=== PATIENT | male | born 1980 | race Two or more races ===

== ENCOUNTER 2017-06-16 17:21 | Emergency (ER) | payer MEDICAID ==
[~2017-06-16] VITALS: Ht 177.8 cm; Wt 102.1 kg
--- NOTE | 2017-06-16 18:09 | NUR ---
DR BARTLETT AT BEDSIDE FOR ABCESS CARE.
--- NOTE | 2017-06-16 18:23 | NUR ---
MSE COMPLETED, DRESSING TO RT FA. PT D/C'D HOME, ACI/RX X2 GIVEN. PT GOT DRESSED AND AMBULATED WITH HIS UNCLE WHOM IS TO DRIVE.
[2017-06-16 18:24] VITALS: BP 142/84
== END 2017-06-16 18:25 | disposition home or self-care (01) ==
LOC: ER 17:22
DX: L02.414 Cutaneous abscess of left upper limb (principal); F17.200 Nicotine dependence, unspecified, uncomplicated
CPT/HCPCS: A4663; J1170